=== PATIENT | female | born 1980 | race Caucasian/White ===

== ENCOUNTER 2017-09-30 15:00 | Outpatient (CLI) | payer MEDICARE, MEDICAID, SELFPAY ==
--- NOTE | 2017-09-30 14:42 | DI.REPORT_ITS ---
SYMPTOMS/DIAGNOSIS: LEFT CHEST PAIN, ATTENTION LOWER COSTAL MARGIN PA AND LATERAL CHEST AND LEFT RIBS: Comparison is made with April,. The cardiac and mediastinal contours have a normal appearance. The lungs appear clear. No infiltrate or effusion is seen. The lower ribs are not well penetrated. No rib fractures are seen. There is no evidence of pneumothorax. There are mild degenerative changes in the thoracic spine. IMPRESSION: Negative chest and left ribs.
== END 2017-09-30 15:01 ==
PROVIDERS: PCP General Practice; Visit Provider General Practice
DX: R07.9 Chest pain, unspecified (principal)
CPT/HCPCS: 71046; 71100

== ENCOUNTER 2018-04-29 13:32 | Emergency (ER) | payer MEDICARE, MEDICAID, SELFPAY ==
[2018-04-29 13:51] VITALS: BP 157/103; PULSE 106; RESP 16; TEMP 36.3; O2SAT 98
[2018-04-29 14:17] LABS: Bilirubin Small (Negative); Blood Negative (Negative); Clarity Sl Cloudy; Glucose Negative (Negative); Ketones Trace mg/dL (Negative); Leukocyte Esterase Negative (Negative); Nitrite Negative (Negative); Specific Gravity >= 1.030 (1.005-1.025); Urobilinogen 0.2 EU/dL (Up TO 0.2); pH 5.5 (5-8)
[2018-04-29 14:34] LABS: Bacteria Few HPF (Negative); C & S Indicated? No; Casts Negative LPF (Negative); Crystals Negative HPF (Negative); Epithelial Cells Many HPF (Negative); Mucus Moderate (Negative); RBC Negative (0-2); WBC Negative HPF (0-5)
--- NOTE | 2018-04-29 14:40 | W.ED.GENAD ---
Discharge Plan Disposition Patient Disposition: HOME Condition: Improving Discharge Details Chief Complaint: Urinary Clinical Impression: Acute cystitis Primary Care Provider: Kuldip Goldsmith ED Provider: Navdeep Ramos Home Meds and New Rx's Prescriptions: New phenazopyridine [Pyridium] 100 mg tablet 100 mg PO TID 2 Days Qty: 6 RF: 0 cephalexin 500 mg capsule 500 mg PO TID 7 Days Qty: 21 RF: 0 Continued albuterol sulfate 8.5 GM HFA aerosol inhaler 8.5 gm Inhalation Q4H PRN PRNRF: 0 diphenhydramine HCl 25 MG capsule 50 mg PO Q6H PRN PRNRF: 0 hydroxyzine HCl 25 MG tablet 25 mg PO Q6H PRN PRN (Reason: Itching) Qty: 15 RF: 0 famotidine 20 MG tablet 20 mg PO BID Qty: 10 RF: 0 epinephrine [EpiPen 2-Freedom] 0.3 MG/0.3 ML auto-injector 0.3 mg IJ DIRECTED PRN (Reason: Anaphylaxis) Qty: 1 RF: 0 Discontinued prednisone 20 MG tablet 40 mg PO DAILY Qty: 8 RF: 0 azithromycin 250 MG tablet 250 mg PO DIRECTED Qty: 6 RF: 0 prednisone 20 MG tablet 40 mg PO DAILY Qty: 12 RF: 0 Discharge Instructions Additional Instructions: Please take medications as prescribed. Continue your regular medications. Follow-up with regular doctor if not improving in 3-5 days time. Return if you develop increasing discomfort, fever, vomiting, or any other acute concerns Medical Decision Making 38-year-old female with lower abdominal pain and urinary frequency and dark colored urine over 1-1/2 days time. She is afebrile mildly tachycardic, mildly tender in her abdomen. Differential diagnosis includes pyelonephritis, cystitis, renal colic. IV placed, labs obtained, patient given fluid bolus and ketorolac. She is referred for noncontrast CT scan of the abdomen. Objective data: Patient's urinalysis contaminated but bacteria present. White blood cell count 11 but often has a leukocytosis. Hematocrit is 54, platelets 257. Chemistries note sodium 139, potassium 4.0, chloride 100, bicarb 27, BUN 11, creatinine 0.8 CT images are reassuring with no evidence of obstructive uropathy, no free fluid or free air and no inflammatory changes noted. She is improved following fluids and ketorolac. We will treat for developing cystitis. Patient understands home care and return precautions. HPI General Mode of arrival: ambulatory. Date/Time Provider Initiated Documentation: 04/29/18 13:59. Limitations to Documentation: no limitations. Information obtained by: patient. History of Present Illness 38 year old F presents to the emergency department with the chief complaint of Lower abdominal pain and dysuria, described as moderate, Quality is described as dull, and is localized to the abdomen and pelvis. Patient reports no radiation. Patient started experiencing this hour(s) and it has been intermittent. No relieving factors improve symptom(s), No exacerbating factors reported . Patient notes denies fever/chills, loss of appetite and nausea/vomiting. Patient did receive the following treatments prior to arrival, none Related Data Home Medications Medication Instructions Recorded Confirmed albuterol sulfate 8.5 gm INHALATION Q4H PRN PRN 09/17/14 05/08/16 diphenhydramine HCl 50 mg PO Q6H PRN PRN 03/30/16 05/08/16 epinephrine [EpiPen 2-Freedom] 0.3 mg IJ DIRECTED PRN #1 03/30/16 05/08/16 auto.injct famotidine 20 mg PO BID #10 tab 03/30/16 05/08/16 hydroxyzine HCl 25 mg PO Q6H PRN PRN #15 tab 03/30/16 05/08/16 cephalexin 500 mg PO TID 7 Days #21 cap 04/29/18 phenazopyridine [Pyridium] 100 mg PO TID 2 Days #6 tab 04/29/18 Previous Rx's Medication Instructions Recorded epinephrine [EpiPen 2-Freedom] 0.3 mg IJ DIRECTED PRN #1 03/30/16 auto.injct famotidine 20 mg PO BID #10 tab 03/30/16 hydroxyzine HCl 25 mg PO Q6H PRN PRN #15 tab 03/30/16 cephalexin 500 mg PO TID 7 Days #21 cap 04/29/18 phenazopyridine [Pyridium] 100 mg PO TID 2 Days #6 tab 04/29/18 Allergies Allergy/AdvReac Type Severity Reaction Status Date / Time chocolate flavor Allergy Severe unknown Unverified 04/29/18 13:51 hydrocodone bitartrate AdvReac Severe Nausea Unverified 04/29/18 13:51 [From Vicodin] General Stated Complaint: Urinary JANETTE: 4 Review of Systems Review of Systems No vomiting. No change to stool. 6 systems reviewed and otherwise negative [facility] Social History Smoking/Tobacco Use Status: Current every day Tobacco Type: cigarettes Alcohol Intake: current Alcohol Intake frequency: 0-2 drinks per day Drug use: Daily Substance use type: marijuana Do you feel safe at home: Yes Do you feel safe in your relationship?: Yes Exam Narrative Exam Narrative: GEN: awake, alert, oriented 3. Pleasant, well groomed, interactive. HEAD: Normocephalic, atraumatic ENT: Mucous membranes moist, oropharynx unremarkable, External ear exam unremarkable EYES: PERRL, EOMI NECK: Full ROM, no CELSO, no menigismus CHEST/RESP: Nontender, clear to auscultation bilateral, no wheeze/rhonchi/rales CARDIOVASCULAR: RRR, no murmur, rub amita. 2+ Rad pulse bilateral ABDOMEN: Soft, suprapubic tenderness, no mass. +Bowel sounds EXT: Full ROM, no edema, no rash Neuro: Grossly normal neurologic exam, conversant, interactive. Psych: Speech fluent, thoughts congruent, affect normal Course Vital Signs Temperature 36.3 C L 04/29/18 13:51 Pulse 106 H 04/29/18 13:51 Respiratory Rate 16 04/29/18 13:51 Blood Pressure 157/103 H 04/29/18 13:51 Pulse Oximetry 98 04/29/18 13:51 Temperature 36.3 C L 04/29/18 13:51 Temperature Source Temporal Artery Scan 04/29/18 13:51 Pulse 106 H 04/29/18 13:51 Respiratory Rate 16 04/29/18 13:51 Respiratory Effort 04/29/18 13:51 Blood Pressure 157/103 H 04/29/18 13:51 Blood Pressure Position Sitting 04/29/18 13:51 Pulse Oximetry 98 04/29/18 13:51 Oxygen Delivery Method Room Air 04/29/18 13:51 Oxygen Flow Rate 0 04/29/18 13:51 Pain Level 3 04/29/18 13:51 Lab/Test Results Lab/Test Results: Laboratory Tests Range/Units 04/29/18 14:10 Urine Color (Yellow) Yellow Urine Clarity Sl cloudy Urine pH (5-8) 5.5 Ur Specific [place] (1.005-1.025) >= 1.030 H Urine Protein (Negative) mg/dL Trace H Urine Ketones (Negative) mg/dL Trace H Urine Blood (Negative) Negative Urine Nitrite (Negative) Negative Urine Bilirubin (Negative) Small H Urine Urobilinogen (Up TO 0.2) EU/dL 0.2 Ur Leukocyte Esterase (Negative) Negative Urine RBC (0-2) Negative Urine WBC (0-5) HPF Negative Ur Epithelial Cells (Negative) HPF Many Urine Crystals (Negative) HPF Negative Urine Bacteria (Negative) HPF Few Urine Casts (Negative) LPF Negative Urine Mucus (Negative) Moderate Ur Culture Indicated? No Urine Glucose (Negative) mg/dL Negative
[2018-04-29] MEDS: Normal Saline 1,000 ML 1000 ML IV (14:56)
[2018-04-29] MEDS: Ketorolac 15 MG/ML VIAL 30 MG IVP (14:57)
[2018-04-29 15:17] LABS: Abs Immature Grans 0.07 k/cumm (0.0-0.09); Absolute Basophil Count 0.03 k/cumm (0.0-0.2); Absolute Eosinophil Count 0.24 k/cumm (0.0-0.7); Absolute Monocyte Count 0.73 k/cumm (0.11-0.7); Absolute Neutrophil Count 7.24 k/cumm (1.2-6.7); Basophils % 0.3; Eosinophils % 2.2; HCT 54.1 % (36.0-46.0); HGB 18.4 g/dL (12.0-15.5); Immature Grans % 0.6; Lymphocytes % 24.5; Mean Corpuscular Hemoglobin 30.7 pg (27.0-33.0); Mean Corpuscular Volume 90.3 fL (80-95); Mean Platelet Volume 9.2 fL (8.0-11.0); Monocytes % 6.6; Neutrophils % 65.8; Platelet Count 257 x1000/uL (130-400); RBC 5.99 m/cumm (4.00-5.20); RBC Distribution Width 13.5 % (11.7-14.6); White Blood Cell Count 11.01 k/cumm (4.4-10.8)
--- NOTE | 2018-04-29 15:20 | DI.CT_ITS ---
SYMPTOM/DIAGNOSIS: LOW ABD PAIN RENAL COLIC CT: Routine examination. Comparison is made with 09/16/14. Lack of IV contrast does limit evaluation of the abdominal organs. The visualized unenhanced portions of the liver, spleen, pancreas and adrenal glands are unremarkable. The patient is status post cholecystectomy. No definite biliary ductal dilatation is seen. There is no evidence of nephrolithiasis, ureterolithiasis or obstructive uropathy. The urinary bladder is intact. The patient appears to be status post hysterectomy. The visualized lung bases are clear. The aorta is of normal caliber. No significant abdominal or pelvic adenopathy, ascites or pneumoperitoneum is seen. There is a small fat containing midline anterior abdominal wall hernia. The bowel shows no evidence of obstruction or inflammation. There are a few diverticula seen in the sigmoid colon but no evidence of diverticulitis is seen. There is a normal appendix present. No acute osseous abnormality is appreciated. IMPRESSION: No evidence of an acute abdomen. No evidence of nephrolithiasis or obstructive uropathy.
[2018-04-29 15:36] LABS: ALT 46 U/L (12-78); AST 29 U/L (15-37); Albumin 4.4 g/dL (3.4-5.0); Alkaline Phosphatase 99 U/L (46-116); Anion Gap 11.6 mmol/L (3-11); BUN 11 mg/dL (7-18); Bilirubin, Total 0.7 mg/dL (0.2-1.0); CO2 27.4 mmol/L (21.0-32.0); CREATININE 0.85 mg/dL (0.55-1.02); Calcium 10.2 mg/dL (8.5-10.1); Chloride 100 mmol/L (98-107); Glucose 97 mg/dL (70-100); Sodium 139 mmol/L (136-145); Total Protein 8.6 g/dL (6.4-8.2)
--- NOTE | 2018-04-29 15:57 | DI.VRAD_ITS ---
EXAM: CT Abdomen and Pelvis Without Contrast EXAM DATE/TIME: 04/29/2018 2:43 PM CLINICAL HISTORY: 38 years old, female; Signs and symptoms; Other: Lower abdominal pain; Prior surgery; Surgery date: 6+ months; Surgery type: Hysterectomy. Hernia repair. Exploratory surgery TECHNIQUE: Axial computed tomography images of the abdomen and pelvis without contrast. All CT scans at this facility use at least one of these dose optimization techniques: automated exposure control; mA and/or kV adjustment per patient size (includes targeted exams where dose is matched to clinical indication); or iterative reconstruction. Coronal and sagittal reformatted images were created and reviewed. COMPARISON: CT RENAL COLIC WO CONTRAST 09/16/2014 10:29 PM FINDINGS: Upper portion of the liver and spleen nonvisualized. Prior cholecystectomy. Small anterior abdominal wall hernias adjacent to the midline bilaterally containing fat. Prior hysterectomy. Appendix is normal. Normal visualized appearing solid organs. No intestinal obstruction. No obstructive uropathy. No free fluid. No free air. No inflammatory changes. IMPRESSION: No specific etiology identified for the patient's symptoms. Dictated and Authenticated by: Mino Duncan MD. Ordering:SHERYL Sethi MD
[2018-04-29 16:30] VITALS: BP 125/80; PULSE 85; RESP 16; TEMP 36.3; O2SAT 98
== END 2018-04-29 16:30 | disposition home or self-care (01) ==
PROVIDERS: Emergency Provider Emergency Medicine; PCP General Practice
DX: N30.00 Acute cystitis without hematuria (principal)
CPT/HCPCS: 36415; 80053; 96361; 96374; 99284; 74176; 81003; 81015; 85025; J1885; J3490

== ENCOUNTER 2018-06-15 14:56 | Emergency (ER) | payer MEDICARE, MEDICAID, SELFPAY ==
[2018-06-15 15:04] VITALS: BP 130/78; PULSE 126; RESP 24; TEMP 36.4; O2SAT 97
[2018-06-15] MEDS: Albuterol/Ipratropium 3 ML UPD VIAL (15:26)
--- NOTE | 2018-06-15 16:06 | ED.GENADUL_ITS ---
Discharge Plan Disposition Patient Disposition: HOME Condition: Improving Discharge Details Chief Complaint: RespSymp Clinical Impression: Asthma exacerbation Primary Care Provider: Kuldip Goldsmith ED Provider: Nellie Weber Home Meds and New Rx's Prescriptions: New prednisone 20 mg tablet See Rx Instructions .ROUTE .COMPLEX Qty: 12 RF: 0 Flovent Diskus 100 mcg/actuation blister with device 1 inh IH BID Qty: 28 RF: 0 Continued albuterol sulfate 8.5 GM HFA aerosol inhaler 8.5 gm Inhalation Q4H PRN PRNRF: 0 diphenhydramine HCl 25 MG capsule 50 mg PO Q6H PRN PRNRF: 0 hydroxyzine HCl 25 MG tablet 25 mg PO Q6H PRN PRN (Reason: Itching) Qty: 15 RF: 0 famotidine 20 MG tablet 20 mg PO BID Qty: 10 RF: 0 epinephrine [EpiPen 2-Freedom] 0.3 MG/0.3 ML auto-injector 0.3 mg IJ DIRECTED PRN (Reason: Anaphylaxis) Qty: 1 RF: 0 Discharge Instructions Instructions: Asthma (ED) Additional Instructions: Take the steroids until finished. Use your albuterol inhaler as needed and directed. Use the Flovent inhaler as directed daily. Call your primary care doctor's office tomorrow to schedule a follow-up appointment for reevaluation. Return immediately to the emergency department with any worsening or new concerning symptoms. Discharge Data Discharge Date/Time-TO BE ENTERED AT DEPARTURE: 06/15/18 16:47 Discharge Physician: Nellie Weber Medical Decision Making 38-year-old female with a history of asthma who presents with shortness of breath and cough for the past 5 days. Initial heart rate 120s, normal respiratory rate and oxygen saturation. Denies fever, afebrile here and appears nontoxic so I do not see an indication for cxr at this time. Patient given 1 neb prior to evaluation and denies any improvement. On my evaluation, she had mildly diminished breath sounds and scattered wheezing throughout. Patient given a second neb and admits to complete improvement and requesting to go home. A dose of p.o. steroids given. Vitals normal prior to discharge. Breath sounds significantly improved. Patient speaking in full sentences. She states she has had asthma symptoms daily for the past several months which she attributes to moving frequently and mold in the home. Will send home with a prescription for prednisone, and Flovent. She has albuterol inhaler. She is instructed to call her primary care doctor for reevaluation and to return here if worse. HPI General Mode of arrival: ambulatory . Date/Time Provider Initiated Documentation: 06/15/18 15:17 . Limitations to Documentation: no limitations . Information obtained by: patient . HPI Narrative: Pt is a 38yo F w/ a h/o asthma who presents to the ED w/ a c/o cough with clear sputum, shortness of breath and wheezing for the past several days. Pt states she has been using her albuterol inhaler for relief. Triage note stated fevers up to 101 but pt denied recent fever to me. Denies h/o intubations. Denies recent travel, recent surgery, leg pain or swelling. Related Data Home Medications Medication Instructions Recorded Confirmed albuterol sulfate 8.5 gm INHALATION Q4H PRN PRN 09/17/14 06/15/18 diphenhydramine HCl 50 mg PO Q6H PRN PRN 03/30/16 06/15/18 epinephrine [EpiPen 2-Freedom] 0.3 mg IJ DIRECTED PRN #1 03/30/16 06/15/18 auto.injct famotidine 20 mg PO BID #10 tab 03/30/16 06/15/18 hydroxyzine HCl 25 mg PO Q6H PRN PRN #15 tab 03/30/16 06/15/18 fluticasone propionate [Flovent 1 inh IH BID #28 each 06/15/18 Diskus] prednisone See Rx Instructions .ROUTE 06/15/18 .COMPLEX #12 tab Previous Rx's Medication Instructions Recorded epinephrine [EpiPen 2-Freedom] 0.3 mg IJ DIRECTED PRN #1 03/30/16 auto.injct famotidine 20 mg PO BID #10 tab 03/30/16 hydroxyzine HCl 25 mg PO Q6H PRN PRN #15 tab 03/30/16 fluticasone propionate [Flovent 1 inh IH BID #28 each 06/15/18 Diskus] prednisone See Rx Instructions .ROUTE 06/15/18 .COMPLEX #12 tab Allergies Allergy/AdvReac Type Severity Reaction Status Date / Time chocolate flavor Allergy Severe unknown Unverified 05/02/19 15:08 hydrocodone bitartrate AdvReac Severe Nausea Unverified 06/15/18 15:08 [From Vicodin] General Stated Complaint: RespSymp JANETTE: 3 Review of Systems Review of Systems All systems reviewed & are unremarkable except as noted in HPI and below Constitutional Reports as per HPI, Denies chills and Denies fever(s) Eyes Denies blurry vision ENT Denies dizziness, Denies sore throat and Denies throat swelling Cardiovascular Denies chest pain and Reports dyspnea Respiratory Reports cough and Reports dyspnea Gastrointestinal Denies abdominal pain, Denies diarrhea and Denies vomiting Genitourinary Denies hematuria and Denies dysuria Musculoskeletal Denies back pain and Denies numbness Integumentary/Breasts Denies lesions and Denies rash Neurologic Denies dizziness, Denies focal weakness and Denies numbness Allergic/Immunologic Denies throat swelling PFSH Medical History Asthma (Chronic) Surgical History Hx of hysterectomy with oophorectomy (Acute) History of tonsillectomy (Chronic) Hx of cholecystectomy (Chronic) Hx of hernia repair (Chronic) Social History Smoking/Tobacco Use Status: Current every day Tobacco Type: cigarettes Alcohol Intake: current Alcohol Intake frequency: 0-2 drinks per day Drug use: Daily Substance use type: marijuana Do you feel safe at home: Yes Do you feel safe in your relationship?: Yes Exam Const General: cooperative, healthy appearing and anxious Orientation: alert, awake and oriented x3 HENMT Head: normal to inspection Ears: hearing grossly normal bilaterally, external ears normal and TM's normal bilaterally General nose exam: external nose normal Face and sinus: normal facial exam Mouth: oral mucosae normal Teeth and gingiva: dentition normal Throat: posterior oropharynx normal Eyes General: appearance normal, both eyes and all related structures Eyelids: eyelids normal EOM: EOM intact bilaterally Neck Neck: normal visual inspection Lymphatic: no lymphadenopathy noted Chest Chest: normal inspection of the chest Resp Effort & Inspection: normal respiratory effort and able to speak in complete sentences Auscultation: diminished lung sounds bilaterally throughout (mildly ) and wheezes scattered wheezes Cardio Rate: regular rate Rhythm: regular rhythm GI Inspection: normal to inspection Palpation: soft, not firm, no guarding, no hepatosplenomegaly, no masses and nontender Auscultation: normal bowel sounds Skin General skin exam: no rashes or lesions noted Neuro General: alert and awake Cognition: normal cognition Speech: speech normal Gait: normal gait Motor: muscle tone normal throughout Sensory Exam: no sensory deficits noted Extrem General: normal to inspection, full ROM, normal capillary refill, no calf tenderness and no edema Psych Appearance: grossly normal Mental Status: mental status grossly normal Speech and Movement: speech and movement normal Affect: normal affect Thought Process: normal Course Vital Signs Temperature 97.5 F L 06/15/18 15:04 Pulse 126 H 06/15/18 15:04 Respiratory Rate 24 06/15/18 15:04 Blood Pressure 130/78 06/15/18 15:04 Pulse Oximetry 97 06/15/18 15:04 Temperature 97.5 F L 06/15/18 15:04 Temperature Source Temporal Artery Scan 06/15/18 15:04 Pulse 126 H 06/15/18 15:04 Respiratory Rate 24 06/15/18 15:04 Respiratory Effort 06/15/18 15:08 Respiratory Depth Normal 06/15/18 15:08 Blood Pressure 130/78 06/15/18 15:04 Pulse Oximetry 97 06/15/18 15:04 Pain Level 0 06/15/18 15:04
[2018-06-15] MEDS: Albuterol 2.5 MG/3 ML INH SOLN VIAL UPD (16:09)
[2018-06-15 16:14] VITALS: PULSE 89; RESP 18; O2SAT 95
[2018-06-15] MEDS: predniSONE 20 MG TAB 60 MG PO (16:14)
[2018-06-15 16:47] VITALS: BP 124/70; PULSE 74; RESP 18; TEMP 37; O2SAT 98
== END 2018-06-15 16:47 | disposition home or self-care (01) ==
PROVIDERS: Emergency Provider Physician Assistant; PCP General Practice
DX: J45.901 Unspecified asthma with (acute) exacerbation (principal); F17.210 Nicotine dependence, cigarettes, uncomplicated
CPT/HCPCS: 94640; 99283; J7512; J7613; J7620

== ENCOUNTER 2020-03-11 12:00 | Outpatient (REF) | payer MEDICARE, MEDICAID, SELFPAY ==
[2020-03-11 13:47] LABS: WBC 0-2 HPF (0-5)
[2020-03-11 13:48] LABS: Casts Negative LPF (Negative); Crystals Many Amorphous HPF (Negative); Epithelial Cells Moderate HPF (Negative); Mucus Negative (Negative); Other Cells Negative (Negative); RBC Negative HPF (0-2)
[2020-03-11 13:49] LABS: C & S Indicated? No/Sq. Contamination
== END 2020-03-11 12:20 ==
LOC: NCHCN 12:00
PROVIDERS: PCP General Practice; Visit Provider Family Medicine
DX: F41.8 Other specified anxiety disorders (principal); R19.7 Diarrhea, unspecified; M54.31 Sciatica, right side; Z87.440 Personal history of urinary (tract) infections
CPT/HCPCS: 81015

== ENCOUNTER 2020-03-12 01:20 | Outpatient (CLI) | payer MEDICARE, MEDICAID, SELFPAY ==
--- NOTE | 2020-03-12 10:45 | DI.RAD_ITS ---
EXAM: XR LUMBAR SPINE COMPLETE CLINICAL HISTORY: RT SCIATICA, BACK PAIN, M54.31. TECHNIQUE: 2D digital imaging was performed. COMPARISON: No exams were available for comparison FINDINGS: BONES: No fracture or destructive lesion. Vertebral bodies are normal in height. Mild facet hypertro phy identified lower lumbar levels.. DISKS: There is moderate narrowing of the L4-5 disc space. There are small endplate osteophytes at t his level. There is mild narrowing of the L5-S1 disc space. The remaining intervertebral disc space s are maintained. ALIGNMENT: Lumbar spinal alignment is within normal limits. SOFT TISSUE: Normal. Right upper quadrant surgical clips. Normal bowel gas pattern. IMPRESSION: [id number] degenerative changes in the lower lumbar spine. DATA REPOSITORY: RADIATION DOSE DELIVERED:
--- NOTE | 2020-03-12 10:51 | DI.RAD_ITS ---
EXAM: XR SACRUM CLINICAL HISTORY: RT SCIATICA, PAIN. TECHNIQUE: 2D digital imaging was performed. COMPARISON: CR XR LUMBAR SPINE COMPLETE from 03/12/2020 FINDINGS: BONES: No acute fracture is present. No bony destructive lesion is seen. JOINTS: No widening of the SI joints or erosive changes. Minimal spurring inferiorly at the right SI joint. SOFT TISSUE: Normal. IMPRESSION: Mild degenerative changes of the right SI joint. DATA REPOSITORY: RADIATION DOSE DELIVERED:
== END 2020-03-12 01:40 ==
PROVIDERS: PCP General Practice; Visit Provider Family Medicine
DX: M46.1 Sacroiliitis, not elsewhere classified (principal); M54.31 Sciatica, right side; M47.816 Spondylosis without myelopathy or radiculopathy, lumbar region
CPT/HCPCS: 72110; 72220

== ENCOUNTER 2020-03-31 00:40 | Outpatient (CLI) | payer MEDICARE, MEDICAID, SELFPAY ==
--- NOTE | 2020-03-31 | DI.MRI_ITS ---
EXAM: MR LUMBAR SPINE WO CLINICAL HISTORY: RT SCIATICA, M54.31. TECHNIQUE: Multiplanar multisequence MRI of the Lumbar spine was performed. COMPARISON: CT CT renal colic wo from 04/29/2018 FINDINGS: Five lumbar vertebrae are presumed. Conus medullaris is at normal level. There is no evidence of conus mass nor subjacent clumping of in trathecal nerve roots to suggest arachnoiditis. The distal thecal sac appears unremarkable.There is no evidence of Tarlov intrasacral cysts nor other significant findings within the sacral canal Bones:There are no fractures nor ominous osseous lesions in the lumbar vertebral bodies and visualize d sacrum. With respect to the individual levels... T12-L1: Unremarkable L1-2: Normal disc height and signal. No disc herniation nor central canal stenosis.No foraminal steno sis L2-3: Normal disc height. No disc herniation nor central canal stenosis.No foraminal stenosis.No face t arthropathy. L3-4: Normal disc height. There is mild asymmetric annular bulging in the floor of the exiting left neural foramen, but without prominent ipsilateral foraminal stenosis.No central canal stenosis. No s ignificant facet arthropathy. L4-5: Moderate decreased disc height and signal. There is a central subligamentous disc herniation w hich is superimposed upon some annular bulging. This extends posteriorly 2-3 millimeters and contact s the thecal sac but there is no prominent central canal stenosis. No foraminal stenosis. No signif icant facet arthropathy. L5-S1: Moderate disc space narrowing. There is a prominent central-right paracentral disc herniation which extends posteriorly 7 millimeters and is approximately 1.8 cm wide. Contacting the thecal sac and occupying the right lateral recess. Does not extend into the exiting neural foramen. There is mild foraminal stenosis due to disc height loss. There is no significant facet arthropathy. Soft tissues: paraspinal soft tissues appear unremarkable. IMPRESSION: 1. The main finding is a large central-right paracentral disc herniation at L5-S1 level as described above with significant mass effect upon the thecal sac and right lateral recess at this level. Actua l osseous canal dimensions at this level are within normal limits. There is no significant facet art hropathy nor ligamentum flavum hypertrophy. 2. There is a smaller disc herniation as described above at L4-5 level. 3. In there is no significant facet arthropathy 3 in the lumbosacral spinal column. DATA REPOSITORY:
== END 2020-03-31 00:41 ==
LOC: DI 00:40
PROVIDERS: PCP Family Medicine; Visit Provider Family Medicine
DX: M51.17 Intervertebral disc disorders with radiculopathy, lumbosacral region (principal); M51.26 Other intervertebral disc displacement, lumbar region
CPT/HCPCS: 72148

== ENCOUNTER 2020-04-18 02:48 | Outpatient (CLI) | payer MEDICARE, MEDICAID, SELFPAY ==
[2020-04-18 08:06] LABS: HCT 52.3 % (36.0-46.0); HGB 17.2 g/dL (11.2-15.7); MCHC 32.9 % (32.0-36.0); MCV 94.2 fL (80-95); MPV 8.7 fL (8.0-11.0); Platelet Count 243 10^3/uL (130-400); RBC 5.55 10^6/uL (3.93-5.22); RDW 11.9 % (11.7-14.6); RDW-SD 41.3 fL; WBC 12.13 10^3/uL (4.4-10.8)
[2020-04-18 09:08] LABS: ALT 33 U/L (14-59); AST 14 U/L (15-37); Albumin 3.9 g/dL (3.4-5.0); Alkaline Phosphatase 87 U/L (46-116); Anion Gap 10.2 mmol/L (3-11); BUN 9 mg/dL (7-18); Bilirubin, Total 0.4 mg/dL (0.2-1.0); CO2 27.8 mmol/L (21.0-32.0); CREATININE 0.8 mg/dL (0.55-1.02); Calcium 9.2 mg/dL (8.5-10.1); Calculated LDL 185 mg/dL (<100); Chloride 104 mmol/L (98-107); Cholesterol 300 mg/dL (<200); Glucose 111 mg/dL (74-106); HDL Cholesterol 75 mg/dL (40-60); Potassium 4.6 mmol/L (3.5-5.1); Sodium 142 mmol/L (136-145); TSH (W/Ref FT4) 3.68 uIU/mL (0.36-3.74); Triglyceride 200 mg/dL (<150)
== END 2020-04-18 02:49 | disposition home or self-care (01) ==
LOC: LBO 02:48
PROVIDERS: PCP Family Medicine; Visit Provider Family Medicine
DX: K75.81 Nonalcoholic steatohepatitis (NASH) (principal); F10.20 Alcohol dependence, uncomplicated; E78.5 Hyperlipidemia, unspecified
CPT/HCPCS: 36415; 80053; 80061; 85027; 84443

== ENCOUNTER 2020-07-28 10:31 | Outpatient (REF) | payer MEDICARE, MEDICAID, SELFPAY ==
[2020-07-29 21:26] LABS: COVID-19 RT-PCR UVMMC Result Negative (Negative)
== END 2020-07-28 10:32 | disposition home or self-care (01) ==
LOC: NCHCN 10:31
PROVIDERS: PCP Family Medicine; Visit Provider Family Medicine
DX: Z20.822 Contact with and (suspected) exposure to COVID-19 (principal)
CPT/HCPCS: U0003; U0005

== ENCOUNTER 2020-09-12 12:29 | Outpatient (REF) | payer MEDICARE, MEDICAID, SELFPAY ==
[2020-09-12 15:26] LABS: Anion Gap 9.5 mmol/L (3-11); BUN 6 mg/dL (7-18); CO2 26.5 mmol/L (21.0-32.0); CREATININE 0.8 mg/dL (0.55-1.02); Calcium 9.9 mg/dL (8.5-10.1); Chloride 105 mmol/L (98-107); Glucose 100 mg/dL (74-106); Lithium 1.1 mmol/l (0.6-1.2); Potassium 4.3 mmol/L (3.5-5.1); Sodium 141 mmol/L (136-145)
== END 2020-09-12 12:30 | disposition home or self-care (01) ==
LOC: NCHCN 12:29
PROVIDERS: PCP Family Medicine; Visit Provider Family Medicine
DX: F25.0 Schizoaffective disorder, bipolar type (principal); Z51.81 Encounter for therapeutic drug level monitoring; Z79.899 Other long term (current) drug therapy
CPT/HCPCS: 80048; 80178

== ENCOUNTER 2021-01-06 13:32 | Outpatient (REF) | payer MEDICARE, MEDICAID, SELFPAY ==
[2021-01-07 17:30] LABS: COVID-19 RT-PCR UVMMC Result Negative (Negative)
== END 2021-01-06 13:33 | disposition home or self-care (01) ==
LOC: NCHCN 13:32
PROVIDERS: PCP Family Medicine; Visit Provider Family Medicine
DX: Z20.822 Contact with and (suspected) exposure to COVID-19 (principal)
CPT/HCPCS: U0003; U0005

== ENCOUNTER 2021-06-08 14:47 | Outpatient (REF) | payer MEDICARE, MEDICAID, SELFPAY ==
[2021-06-08 15:44] LABS: Abs Immature Grans 0.11 10^3/uL (0.0-0.06); Absolute Basophil Count 0.06 10^3/uL (0.0-0.2); Absolute Eosinophil Count 0.15 10^3/uL (0.0-0.7); Absolute Lymphocyte Count 3.23 10^3/uL (1.2-3.4); Absolute Monocyte Count 0.57 10^3/uL (0.1-0.8); Absolute Neutrophil Count 5.51 10^3/uL (1.2-6.7); Basophils % 0.6; Eosinophils % 1.6; HCT 49.5 % (36.0-46.0); HGB 16.2 g/dL (11.2-15.7); Immature Grans % 1.1; Lymphocytes % 33.5; MCH 30.6 pg (27.0-33.0); MCHC 32.7 % (32.0-36.0); MCV 93.4 fL (80-95); MPV 9.5 fL (8.0-11.0); Monocytes % 5.9; Neutrophils % 57.3; Platelet Count 339 10^3/uL (130-400); RDW 13.1 % (11.7-14.6); RDW-SD 45.2 fL; WBC 9.63 10^3/uL (4.4-10.8)
[2021-06-08 16:30] LABS: ALT 31 U/L (14-59); AST 12 U/L (15-37); Albumin 3.4 g/dL (3.4-5.0); Alkaline Phosphatase 75 U/L (46-116); Anion Gap 11.2 mmol/L (3-11); BUN 8 mg/dL (7-18); Bilirubin, Total 0.3 mg/dL (0.2-1.0); CO2 25.8 mmol/L (21.0-32.0); CREATININE 0.7 mg/dL (0.55-1.02); Calcium 9.6 mg/dL (8.5-10.1); Calculated LDL 122 mg/dL (<100); Chloride 106 mmol/L (98-107); Cholesterol 256 mg/dL (<200); Glucose 103 mg/dL (74-106); HDL Cholesterol 79 mg/dL (40-60); Potassium 4.5 mmol/L (3.5-5.1); Sodium 143 mmol/L (136-145); Total Protein 6.6 g/dL (6.4-8.2); Triglyceride 276 mg/dL (<150)
[2021-06-08 16:59] LABS: Hemoglobin A1C 5.6 % (<5.7)
== END 2021-06-08 14:48 | disposition home or self-care (01) ==
LOC: NCHCN 14:47
PROVIDERS: PCP Family Medicine; Visit Provider Family Medicine
DX: I10 Essential (primary) hypertension (principal); E78.5 Hyperlipidemia, unspecified; R73.03 Prediabetes
CPT/HCPCS: 80053; 80061; 83036; 85025

== ENCOUNTER 2022-06-07 14:27 | Outpatient (REF) | payer MEDICARE, MEDICAID, SELFPAY ==
[2022-06-07 14:41] LABS: Abs Immature Grans 0.06 10^3/uL (0.0-0.06); Absolute Basophil Count 0.07 10^3/uL (0.0-0.2); Absolute Eosinophil Count 0.28 10^3/uL (0.0-0.7); Absolute Lymphocyte Count 2.39 10^3/uL (1.2-3.4); Absolute Monocyte Count 0.75 10^3/uL (0.1-0.8); Basophils % 0.5; Eosinophils % 2.1; HCT 48.6 % (36.0-46.0); HGB 16.4 g/dL (11.2-15.7); Immature Grans % 0.4; Lymphocytes % 17.6; MCH 31.1 pg (27.0-33.0); MCHC 33.7 % (32.0-36.0); MCV 92 fL (80-95); MPV 9.4 fL (8.0-11.0); Monocytes % 5.5; Neutrophils % 73.9; Platelet Count 286 10^3/uL (130-400); RBC 5.28 10^6/uL (3.93-5.22); RDW 11.6 % (11.7-14.6); RDW-SD 39.6 fL; WBC 13.56 10^3/uL (4.4-10.8)
[2022-06-07 14:44] LABS: Absolute Neutrophil Count 10.02 10^3/uL (1.2-6.7)
[2022-06-07 15:25] LABS: Hemoglobin A1C 5.9 % (<5.7)
[2022-06-07 15:33] LABS: ALT 34 U/L (14-59); AST 11 U/L (15-37); Alkaline Phosphatase 100 U/L (46-116); Anion Gap 12.4 mmol/L (3-11); BUN 7 mg/dL (7-18); Bilirubin, Total 0.5 mg/dL (0.2-1.0); CO2 26.6 mmol/L (21.0-32.0); CREATININE 0.8 mg/dL (0.55-1.02); Chloride 100 mmol/L (98-107); Glucose 89 mg/dL (74-106); Potassium 4.5 mmol/L (3.5-5.1); Sodium 139 mmol/L (136-145); Total Protein 7.4 g/dL (6.4-8.2)
== END 2022-06-07 14:28 | disposition home or self-care (01) ==
LOC: NCHCN 14:27
PROVIDERS: PCP Family Medicine; Visit Provider Family Medicine
DX: R73.03 Prediabetes (principal); I10 Essential (primary) hypertension; K75.81 Nonalcoholic steatohepatitis (NASH); J20.9 Acute bronchitis, unspecified
CPT/HCPCS: 80053; 83036; 85025

== ENCOUNTER → 2022-09-09 15:26 | Outpatient (BNVA) | payer MEDICARE, MEDICAID, SELFPAY | PROVIDERS: PCP Family Medicine; Referring Provider Family Medicine; Visit Provider Physical Therapy Assistant | DX: Z12.11 Encounter for screening for malignant neoplasm of colon (principal); Z86.010 Personal history of colon polyps ==

== ENCOUNTER 2022-09-13 11:11 | Day surgery (SDC) | payer OTHER, MEDICAID, SELFPAY ==
--- NOTE | 2022-09-13 06:28 | W.ANESPRE ---
General Info Date of Service Date Performed: 09/13/22 Height: 5 ft 5 in Weight: 109.769 kg Body Mass Index (BMI): 40.2 Surgical Procedure: Operation Date: 09/13/22 12:50 Proposed Procedure Side Surgeon meg Silvestre MD Meds Allergies and Home Medications Allergies Allergy/AdvReac Type Severity Reaction Status Date / Time chocolate flavor Allergy Severe unknown Unverified 09/13/22 11:53 hydrocodone bitartrate AdvReac Severe Nausea Unverified 09/13/22 11:53 [From Vicodin] Home Medication Medication Instructions Recorded epinephrine 0.3 mg/0.3 mL 0.3 mg (0.3 mL) IJ DIRECTED PRN 03/30/16 injection, auto-injector (EpiPen Anaphylaxis ##1 2-Freedom) fluticasone propionate 100 1 inh inhalation BID #28 ea 06/15/18 mcg/actuation blister powder for inhalation (Flovent Diskus) albuterol sulfate 90 mcg/actuation 2 puff inhalation Q6H PRN 01/12/22 aerosol inhaler (ProAir HFA) fluticasone 250 mcg-salmeterol 50 1 inh inhalation BID 01/12/22 mcg/dose blistr powdr for inhalation (Advair Diskus) acetylcysteine 600 mg capsule (NAC) 600 mg PO DAILY 09/09/22 cariprazine 3 mg capsule (Vraylar) 3 mg PO DAILY 09/09/22 Current Visit Medications: Current Medications Generic Name Dose Route Start Last Admin Trade Name Freq PRN Reason Stop Dose Admin Ringer's Solution 1,000 mls @ 80 mls/hr 09/13/22 06:00 IV 09/13/22 23:59 INFUSION GINO IV Miscellaneous Supplies 1 each 09/13/22 06:00 Iv Access IV 09/13/22 23:59 DIRECTED GINO Sodium Chloride 0 ml 09/13/22 06:00 Normal Saline Flush 10 Ml Syr IV 09/13/22 23:59 PRN PRN Sodium Chloride 0 ml 09/13/22 06:00 Normal Saline 10 Ml Vial IJ 09/13/22 23:59 DIRECTED PRN Sterile Water 0 ml 09/13/22 06:00 Water,Injection,Sterile 10 Ml Vial IJ 09/13/22 23:59 DIRECTED PRN PFSH Active Problems Active Problems: Problem Status Onset Code Benign essential tremor G25.0 Bipolar affective disorder F31.9 Prediabetes R73.03 Chronic low back pain M54.50, G89.29 Screening for colon cancer Z12.11 Medical History Medical History Alcohol dependence, continuous Anxiety and depression Asthma Chronic diarrhea Cigarette smoker two packs a day or less HTN (hypertension) Hyperlipidemia Microscopic colitis Nonalcoholic steatohepatitis Sciatica, right side Surgical History Surgical History (Updated 09/13/22 @ 11:58 by Kaila Jackson) History of tonsillectomy Hx of cholecystectomy Hx of colonoscopy Hx of esophagogastroduodenoscopy Hx of hernia repair Hx of hysterectomy with oophorectomy S/P laparoscopic cholecystectomy Tobacco Smoking/Tobacco Use Status: Current every day Tobacco Type: cigarettes Alcohol Alcohol Intake: current Alcohol intake frequency: 0-2 drinks per day Alcohol type: beer Details: Describes drinking 15 beers/day on both Fri & Tue. Substance Use Substance use: Daily Substance use type: marijuana Vital Signs and Lab Results Vital Signs Most Recent Vital Signs in EMR: Temp Pulse Resp BP Pulse Ox 36.4 C L 80 20 125/75 98 09/13/22 12:00 09/13/22 12:00 09/13/22 12:00 09/13/22 12:00 09/13/22 12:00 Lab Results Blood Type / Crossmatch: No Data to Display Complete Blood Count: No Data to Display Complete Metabolic Panel: No Data to Display Liver Function Panel: No Data to Display Coagulation Panel: No Data to Display Cardiac Panel: No Data to Display Arterial Blood Gas: No Data to Display Venous Blood Gas: No Data to Display Pancreas Panel: No Data to Display Thyroid Panel: No Data to Display Infectious Disease: No Data to Display Blood Cultures: No Data to Display Toxicology Panel: No Data to Display Panel: No Data to Display Anesthesia Assessment and Plan Anesthesia History Personal History: No History of Anesthesia Complications Family History: No Family History of Anesthesia Complications and Other (grandmother was allergic, no info. ) Exercise Tolerance Exercise Tolerance: Metabolic Equivalents>4 Cardiac & Pulmonary Exam Cardiac Exam: Normal S1/S2 Heart Sounds Pulmonary Exam: Clear Bilateral Breath Sounds Implantable Cardiac Device Does patient have a Pacemaker or an ICD?: No Airway Exam Known Difficult Airway: No Mallampati Class: 4 Mouth Opening: Normal (> 3cm) Thyromental Distance: Greater than 3 cm Neck Range of Motion: Full ROM Neck Circumference: Thick Teeth Condition: Edentulous ASA Classification ASA Score: ASA 3 Emergency Case?: No NPO Status NPO Status: NPO Clears >2 hours, Solids >8 hours Status Status: History of Hysterectomy Anesthesia Plan Resuscitation Status: Full Code Anesthesia Technique: General Anesthesia Airway Planned: Natural Airway Monitors Used: Standard Monitors Preoperative Comments:: 42 yo female for colo. Sig PMHx: BMI 40, occ EtOH, HTN, smoker, (daily tobacco/cannabis) asthma (albuterol 2 times), preDM, anxiety/depression/bipolar, low back pain.
[2022-09-13 12:00] VITALS: BP 125/75; PULSE 80; RESP 20; TEMP 36.4; O2SAT 98
[2022-09-13] MEDS: Lactated Ringers 1,000 ML 80 ML IV (12:20)
--- NOTE | 2022-09-13 12:36 | W.PM.DSUDISC ---
Date of service: 09/13/22 Time of Service: 13:22 Discharge Plan Disposition Patient Disposition: Home Condition: Good Discharge Details Reason For Visit: Screening colonoscopy Attending Provider: Ranjit Silvestre Primary Care Provider: Erik Kaplan Home Meds and New Rx's Prescriptions: Continued acetylcysteine [NAC] 600 mg capsule 600 mg PO DAILY Vraylar 3 mg capsule 3 mg PO DAILY fluticasone propion-salmeterol [Advair Diskus] 250-50 mcg/dose blister with device 1 inh inhalation BID albuterol sulfate [ProAir HFA] 90 mcg/actuation HFA aerosol inhaler 2 puff inhalation Q6H PRN epinephrine [EpiPen 2-Freedom] 0.3 MG/0.3 ML auto-injector 0.3 mg IJ DIRECTED PRN (Reason: Anaphylaxis) Qty: 1 0RF Flovent Diskus 100 mcg/actuation blister with device 1 inh IH BID Qty: 28 0RF Discontinued bisacodyl [Dulcolax (bisacodyl)] 5 mg tablet,delayed release (DR/EC) 5 mg PO ONCE Qty: 4 0RF Rx Instructions: Take per colonoscopy instructions provided by ordering providers office polyethylene glycol 3350 17 gram/dose powder 17 g PO ONCE Qty: 238 0RF Rx Instructions: Take per colonoscopy instructions provided by ordering providers office Discharge Instructions Instructions: Colorectal Polyps (GEN), Diverticulosis (GEN), Diverticulosis Diet (GEN) Additional Instructions: Elda, we were able to finish your colonoscopy today without any difficulty. The quality of your prep was very good. I had great visualization. I did find a polyp around 30 cm from your anus. I removed this completely. I will take a week or 2 for me to get the results of the pathology report, but once I have that I will be in touch with my final recommendations. 1. If tolerated, consume a soft, low fiber diet for 1-2 days. 2. Do not drive, drink alcohol, operate machinery, make critical decisions, or do activities that require coordination or balance for 24 hours. 3. Because air was put into your colon during the procedure, expelling air from your rectum (passing gas or farting) is normal. 4. You may not have a bowel movement for 1-3 days because of the colonoscopy prep. This is normal. 5. Go directly to the emergency room if you notice any of the following: Develop chills (warm to touch), or if you have a thermometer and your temperature is above 101 Difficulty breathing or difficultly swallowing Persistent vomiting Severe abdominal pain, other than gas cramps Severe chest pain Black, tarry stools Any bleeding ? exceeding one tablespoon 6. Call your physician if the site where your intravenous was started becomes red, swollen, painful, and warm to touch. 7. Your physician has reviewed your pre-procedure medications. Please continue to take those medications as previously ordered. You will be given specific information/education regarding any changes to your medications before leaving. Activity:: Activity as Tolerated Diet:: As Tolerated Discharge Orders Discharge Orders: Discharge Order (Routine); Ordered 09/13/22 Ordered By: Ranjit Silvestre DS: Diagnosis Discharge Diagnosis (1) Screening for colon cancer: Status: Acute Asessment and Plan: I will follow-up on polypectomy results
--- NOTE | 2022-09-13 12:37 | W.COLOREPORT ---
Date of service: 09/13/22 Time of Service: : Colonoscopy Report Date of procedure: 09/13/22 Pre-op diagnosis general: Screening colonoscopy Post-op diagnosis procedure note: other (Diverticulosis, colon polyp) Procedure: Colonoscopy with polypectomy Surgeon: Ranjit Silvestre Anesthesia Type: General:No Airway Estimated blood loss (mL): 5 Pathology: other (0.25 cm polyp at 30 cm) Complications: None Disposition: same day Indications: Elda is a 42-year-old woman who underwent a colonoscopy previously for nonspecific abdominal complaints. She was found to have adenomatous polyps. She is following up for her next screening colonoscopy. Prep: Miralax/Dulcolax Procedure Start Time: 12:54 Procedure End Time: 13:14 Retraction Time: 11 Findings: Diverticulosis, colon polyp at 30 cm Procedure Description: After the induction of monitored anesthetic care, and with the patient in left lateral decubitus position, I began by performing an external anorectal exam.? Perineum and skin were normal, as was the anal verge.? There was no evidence of external hemorrhoids.? Next, I performed a digital rectal exam.? I did not appreciate any abnormal findings.? Next, I advanced a colonoscope into the rectal vault.? I performed retroflexion.? This was normal.? Using insufflation, I then advanced the colonoscope beyond the rectal folds and into the sigmoid colon before advancing towards the cecum.? The quality of the prep was adequate.? There were occasional sigmoid diverticula. The scope was noted to be in the cecum by identification of the ileocecal valve and appendiceal orifice.? I then began withdrawing the colonoscope using repeated irrigation as necessary for full evaluation of the colonic mucosa. Around 30 cm from the anal verge I identified a 0.25 cm polyp. ?It appeared sessile in character. ?I was able to remove this with a cold forcep polypectomy. ?I examined the site, and there was minimal bleeding. ?Once this was completed, I continued to withdraw the scope and examine the remainder of the colonic mucosa.?Once the scope was withdrawn to the level of the rectum, great care was taken to examine portions of the rectal folds.? Finally, the scope was withdrawn and the patient was brought to the same-day surgery recovery unit as the anesthetic wore off. ?The findings and instructions were shared with the patient prior to discharge.
[2022-09-13 12:39] VITALS: BMI 40.2
--- NOTE | 2022-09-13 12:59 | BOWEL_PTH ---
PATIENT: Elda Saxena I LOC: [facility] U#:[id number] AGE/SX: 42/F ROOM: RE09/13/[address]: Ranjit Silvestre MD : 1980 BED: DIS: 09/13/2022 SPEC #: [id number] RECD: 09/13/22 13:29 STATUS: KIRILL RE #: [id number] USAMA: 09/13/22 12:[address]: Ranjit Silvestre DEPT: Surgical Specimen RECD BY: Lydia Sotomayor ENTERED: 09/13/22 13:30 SP TYPE: Bowel OTHR DR: Erik Kalpan Tissues: 1 - BIOPSY BOWEL Procedures: GROSS AND MICRO LEVEL 4 Comments: [id number]
[2022-09-13 13:16] VITALS: BP 105/70; PULSE 80; RESP 18; TEMP 36.3; O2SAT 98
[2022-09-13 13:46] VITALS: BP 105/76; PULSE 79; RESP 20; TEMP 36.2; O2SAT 98
--- NOTE | 2022-09-14 09:41 | W.ANESPOSTOP ---
Postoperative Evaluation Date, Time and Location Date Performed: 09/13/22 Time Performed: 13:46 Patient Location: Day Surgery Unit Vital Signs Most Recent Imported Vital Signs: Most Recent Vital Signs Temp Pulse Resp BP Pulse Ox 36.2 C L 79 20 105/76 98 09/13/22 13:46 09/13/22 13:46 09/13/22 13:46 09/13/22 13:46 09/13/22 13:46 Pain Score Most Recent Pain Score: Most Recent Pain Score Pain Level 0 09/13/22 13:46 Assessment Mental Status: Awake (Alert & Oriented to Patient Baseline) Airway and Respiratory Function: Patent airway with normal (patient baseline) respiratory exam Cardiovascular Function: Hemodynamically Stable Hydration Status: Adequately Hydrated Nausea & Vomiting: No Nausea or Vomiting Pain: Pt. Denies Any Pain Peripheral Nerve Block: Patient did not receive a nerve block
== END 2022-09-13 14:08 | disposition home or self-care (01) ==
PROVIDERS: PCP Family Medicine; Visit Provider Surgery
PROC: 0DJD8ZZ Inspection of Lower Intestinal Tract, Via Natural or Artificial Opening Endoscopic (ICD-10-PCS; CPT 45378; principal; 2022-09-13 12:45)
DX: Z12.11 Encounter for screening for malignant neoplasm of colon (principal); Z86.010 Personal history of colon polyps; D12.5 Benign neoplasm of sigmoid colon; K57.30 Diverticulosis of large intestine without perforation or abscess without bleeding
CPT/HCPCS: 45380; 88305; J2001; J2704

== ENCOUNTER → 2023-02-03 02:00 | Outpatient (CLI) | payer OTHER, MEDICAID, SELFPAY ==
--- NOTE | 2023-02-03 | DI.MAMMO_ITS ---
Exam(s) MAMMO SCREENING EXAM: MAMMO SCREENING CLINICAL HISTORY: SCREENING, Z12.31 TECHNIQUE: Bilateral full field digital CC and MLO mammographic images were obtained with 3D tomosyn thesis and utilizing computer aided detection (CAD). COMPARISON: This is a baseline examination. FINDINGS: Masses/Architectural Distortion: There is a 5 mm nodule in the retroareolar region of the left breast on the craniocaudad view. There are no areas of architectural distortion. Microcalcifications: No suspicious pleomorphic-type are seen. Skin Thickening/Nipple Retraction: None. IMPRESSION: 1. 5 mm nodule in the retroareolar region of the left breast. 2. Spot compression views requested for further evaluation. Limited left breast ultrasound may be in dicated at that time. BI-RADS Category 0 - Assessment Incomplete: Need additional imaging evaluation Breast Density - Category B - Scattered areas of fibroglandular density Breast density category C or D implies that the patient has dense breast tissue. Dense breast tissue is very common and is not abnormal but dense breast tissue can make it harder to find cancer on a ma mmogram. Also, dense breast tissue may increase their breast cancer risk. This information about the result of the mammogram report was provided to the patient to raise their awareness. Use this report when you speak with the patient about their risks for breast cancer, which includes their family hist ory. At that time, you may recommend for more screening tests (Ultrasound or MRI) as they might be us eful based on their risk. A negative radiographic report should not delay biopsy if a dominant or clinically suspicious mass is present. Up to ten percent of cancers are not identified on mammography. A negative report may reinforce clinical impression. Adenosis and dense breasts may obscure an underlying neoplasm. False positive reports average 6 to 10%. Patient will receive a letter notifying them of these results.
== END ==
PROVIDERS: PCP Family Medicine; Visit Provider Family Medicine
DX: Z12.31 Encounter for screening mammogram for malignant neoplasm of breast (principal); R92.8 Other abnormal and inconclusive findings on diagnostic imaging of breast
CPT/HCPCS: 77063; 77067

== ENCOUNTER 2023-02-08 04:17 | Outpatient (CLI) | payer OTHER, MEDICAID, SELFPAY ==
[2023-02-08 09:27] LABS: Abs Immature Grans 0.04 10^3/uL (0.0-0.06); Absolute Basophil Count 0.06 10^3/uL (0.0-0.2); Absolute Eosinophil Count 0.43 10^3/uL (0.0-0.7); Absolute Lymphocyte Count 2.54 10^3/uL (1.2-3.4); Absolute Monocyte Count 0.46 10^3/uL (0.1-0.8); Absolute Neutrophil Count 5.32 10^3/uL (1.2-6.7); Basophils % 0.7; Eosinophils % 4.9; HCT 41.7 % (36.0-46.0); HGB 14.2 g/dL (11.2-15.7); Immature Grans % 0.5; Lymphocytes % 28.7; MCHC 34.1 % (32.0-36.0); MCV 88 fL (80-95); MPV 8.9 fL (8.0-11.0); Monocytes % 5.2; Platelet Count 263 10^3/uL (130-400); RBC 4.73 10^6/uL (3.93-5.22); RDW 11.6 % (11.7-14.6); RDW-SD 37.3 fL; WBC 8.85 10^3/uL (4.4-10.8)
[2023-02-08 09:38] LABS: Hemoglobin A1C 5.8 % (<5.7)
[2023-02-08 09:57] LABS: ALT 18 U/L (14-59); AST 7 U/L (15-37); Albumin 3.2 g/dL (3.4-5.0); Alkaline Phosphatase 83 U/L (46-116); Anion Gap 6.3 mmol/L (3-11); BUN 12 mg/dL (7-18); Bilirubin, Total 0.2 mg/dL (0.2-1.0); CO2 26.7 mmol/L (21.0-32.0); CREATININE 0.8 mg/dL (0.55-1.02); Calcium 9.1 mg/dL (8.5-10.1); Calculated LDL 126 mg/dL (<100); Chloride 106 mmol/L (98-107); Cholesterol 215 mg/dL (<200); Glucose 106 mg/dL (74-106); HDL Cholesterol 59 mg/dL (40-60); Sodium 139 mmol/L (136-145); Total Protein 6.4 g/dL (6.4-8.2); Triglyceride 151 mg/dL (<150)
== END 2023-02-08 04:18 | disposition home or self-care (01) ==
LOC: LBO 04:17
PROVIDERS: PCP Family Medicine; Visit Provider Family Medicine
DX: I10 Essential (primary) hypertension (principal); R73.03 Prediabetes; E78.5 Hyperlipidemia, unspecified; K76.0 Fatty (change of) liver, not elsewhere classified
CPT/HCPCS: 36415; 80053; 80061; 83036; 85025

== ENCOUNTER → 2023-02-09 00:50 | Outpatient (CLI) | payer OTHER, MEDICAID, SELFPAY ==
--- NOTE | 2023-02-09 | DI.US_ITS ---
Exam(s) MG MAMMO SCREEN CALL BACK UNI US BREAST LT COMPLETE EXAM: MG MAMMO SCREEN CALL BACK UNI-LEFT AND COMPLETE LEFT BREAST ULTRASOUND CLINICAL HISTORY: F/U MAMMO, LT BREAST NODULE. TECHNIQUE: Unilateral spot mammographic images obtained with 3D tomosynthesisand utilizing computer aided detection (CAD). . Complete breast Ultrasound was also performed, including all 4 quadrants, the retroareolar region, a nd the ipsilateral axilla. COMPARISON: Prior mammograms were reviewed. This additional imaging was performed due to findings described on the recent BASELINE screening mammogram of 02/03/2023. FINDINGS: DIAGNOSTIC MAMMOGRAM: Additional mammographic views performed todaydo not dissipate the nodule. We proceeded with ultrasou nd COMPLETE LEFT BREAST ULTRASOUND: Ultrasound performed today reveals a wider than taller solid nodule in the retroareolar region which corresponds to the finding on the mammogram, measuring 5 x 3 mm and containing a hyperechoic focus co nsistent with the solitary calcifications seen within the nodule on the mammogram. This is not a sim ple cyst. It exhibits neutral through transmission. No associated decreased through transmission. Does not appear to be associated with a dilated duct. No other significant focal ultrasound findings in the left breast Scanning of the ipsilateral axilla reveals no significant adenopathy. IMPRESSION: 1. There is a 5 x 3 mm solid partially calcified nodule in the retroareolar region on ultrasound whi ch corresponds to the finding on the mammogram. May represent small fibroadenoma or possible papillo ma Appropriate follow-up is repeat imaging in 3 months to include repeat ultrasound and mammogram.. The patient was informed of these findings and recommendations by myself prior to leaving the departm ent today. BI-RADS Category 3 - 3 month - Probably Benign Finding: Recommend follow-up mammography and ultrasoun d in 3 months Breast Density - Category B - Scattered areas of fibroglandular density Breast density Category C or D implies that the patient has dense breast tissue. Dense breast tissue can make it harder to find cancer on a mammogram. Dense breast tissue is also associated with an incr eased risk of breast cancer. This information about the result of the mammogram report was provided to the patient to raise their awareness. Use this report when you speak with the patient about their risks for breast cancer, which includes their family history. At that time, you may recommend additional screening tests (Ultrasoun d or MRI) as these tests may add significant information. A negative radiographic report should not delay biopsy if a dominant or clinically suspicious mass is present. Up to ten percent of cancers are not identified on mammography. A negative report may reinforce clinical impression. Adenosis and dense breasts may obscure an underlying neoplasm. False positive reports average 6 to 10%. Patient will receive a letter notifying them of these results.
== END ==
PROVIDERS: PCP Family Medicine; Visit Provider Family Medicine
DX: Z12.31 Encounter for screening mammogram for malignant neoplasm of breast (principal); R92.8 Other abnormal and inconclusive findings on diagnostic imaging of breast
CPT/HCPCS: 76642; 77063; 77067

== ENCOUNTER → 2023-03-18 01:01 | Outpatient (CLI) | payer OTHER, MEDICAID, SELFPAY ==
--- NOTE | 2023-03-18 | DI.US_ITS ---
Exam(s) US NEEDLE LOCAL BREAST WO RAD EXAM: LEFT BREAST MASS COMPARISON: US US BREAST LT COMPLETE from 02/09/2023 TECHNIQUE: Ultrasound performed using standard protocol. FINDINGS: Sonography was provided for Dr. Ranjit Silvestre during the performance of a ultrasound-guided left breas t biopsy. Please refer to the procedure report for complete details. DATA REPOSITORY:
--- NOTE | 2023-03-18 13:21 | BREAST_PTH ---
PATIENT: Elda Saxena I LOC: [facility] U#:[id number] AGE/SX: 44/F ROOM: RE03/18/[address]: Ranjit Silvestre MD : 1980 BED: DIS: SPEC #: [id number] RECD: 03/18/23 16:33 STATUS: KIRILL REKhushbu #: [id number] USAMA: 03/18/23 13:[address]: Ranjit Silvestre DEPT: Surgical Specimen RECD BY: Lydia Sotomayor ENTERED: 03/18/23 16:33 SP TYPE: Breast OTHR DR: Erik Kaplan Tissues: 1 - BREAST BX NEEDLE Procedures: GROSS AND MICRO LEVEL 4 Comments: [id number]
--- NOTE | 2023-03-18 13:44 | OPPNE_ITS ---
Date of service: 03/18/23 Time of Service: 13:44 Procedure Note Date of procedure: 03/18/23 Procedure: Ultrasound-guided core needle biopsy of left breast mass Surgeon/Proceduralist/Physician: Ranjit Silvestre Procedure Diagnosis: Left breast mass Procedure Indications: Elda is a 42-year-old woman who underwent routine screening mammography, was found to have a lesion in the retroareolar position on the left breast. This was followed up with an ultrasound that demonstrated a 5 x 3 mm subareolar breast lesion. She was recommended to undergo surveillance imaging, or biopsy. She elected to undergo left breast biopsy. We discussed the risks and benefits of the procedure, as well as the nature of it and anticipated recovery. She was able to provide informed consent today, and we will move forward with ultrasound-guided core needle biopsy. Procedure Description: Show was assisted to the procedure table, and the left breast was exposed. A limited ultrasound was performed by fuel testing technician, and the previous lesion was identified appropriately. Measurements were concordant, and the location was also in agreement. Next, I prepped the area of the left breast adjacent to the ultrasound probe. I anesthetized the skin with local anesthetic. Next, I made a small stab skin incision using a 11 blade scalpel. Next, with real-time ultrasound guidance, I advanced a 22-gauge Bard core needle biopsy device up to the margin of the lesion. The breast mass was sampled twice with the core needle device in the usual fashion. She tolerated this well. Given the small size of the lesion, I did not think it would be reasonable to perform any more biopsies after that, as a majority of the mass at least as defi viry by ultrasound was quite hard to decipher after the biopsies. Next, again with the assistance of ultrasound, a permanent marker was placed in the area of the previous biopsies. A Band-Aid was applied to the percutaneous access site, and the patient was advised of what to expect in terms of recovery and follow- up. Patient did request that results be phoned to her mother rather than the patient directly. Patient's mother's name is Kerry and will be reached at [phone]
== END ==
PROVIDERS: PCP Family Medicine; Visit Provider Surgery
DX: D24.2 Benign neoplasm of left breast (principal)
CPT/HCPCS: 19083; 88305; 76942

== ENCOUNTER 2024-01-16 16:05 | Outpatient (REF) | payer OTHER, MEDICAID, SELFPAY ==
[2024-01-16 15:59] LABS: ALT 18 U/L (14-59); AST 10 U/L (15-37); Albumin 3.8 g/dL (3.4-5.0); Alkaline Phosphatase 95 U/L (46-116); Anion Gap 10.5 mmol/L (3-11); BUN 10 mg/dL (7-18); Bilirubin, Total 0.39 mg/dL (0.2-1.0); CO2 23.5 mmol/L (21.0-32.0); CREATININE 0.9 mg/dL (0.55-1.02); Calcium 9.1 mg/dL (8.5-10.1); Chloride 107 mmol/L (98-107); Estimated GFR 80.84 (mL/min/1.73m2); Glucose 92 mg/dL (74-106); Potassium 4.3 mmol/L (3.5-5.1); Sodium 141 mmol/L (136-145); Total Protein 6.8 g/dL (6.4-8.2)
[2024-01-16 16:04] LABS: Hemoglobin A1C 5.7 % (<5.7)
== END 2024-01-16 16:06 | disposition home or self-care (01) ==
LOC: NCHCN 16:05
PROVIDERS: PCP Family Medicine; Visit Provider Family Medicine
DX: R73.03 Prediabetes (principal)
CPT/HCPCS: 80053; 83036

== ENCOUNTER 2024-08-06 02:17 | Outpatient (CLI) | payer MEDICARE, MEDICAID, SELFPAY ==
--- NOTE | 2024-08-06 | DI.MAMMO_ITS ---
Exam(s) MAMMO SCREENING EXAM: MAMMO SCREENING CLINICAL HISTORY: screening Z00.00, ADULT HEALTH EXAMINATION TECHNIQUE: Mammograms were interpreted according to the usual protocol including computer analysis with CAD system, tomosynthesis and C-view imaging. COMPARISON: 2022 FINDINGS: The breasts are composed of mainly fatty density , Breast Density category A. No suspicious masses or suspicious microcalcifications are seen. No skin thickening or abnormal axillary lymph nodes are seen. There has been no significant change from prior exams. IMPRESSION: BI-RADS Category 1, Negative mammogram Yearly screening mammography is recommended. Breast Density- Category A - The breast are almost entirely fatty. Breast density Category C or D implies that the patient has dense breast tissue. Dense breast tissue can make it harder to find cancer on a mammogram. Dense breast tissue is also associated with an increased risk of breast cancer. This information about the result of the mammogram report was provided to the patient to raise their awareness. Use this report when you speak with the patient about their risks for breast cancer, which includes their family history. At that time, you may recommend additional screening tests (Ultrasound or MRI) as these tests may add significant information. A negative radiographic report should not delay biopsy if a dominant or clinically suspicious mass is present. Up to ten percent of cancers are not identified on mammography. A negative report may reinforce clinical impression. Adenosis and dense breasts may obscure an underlying neoplasm. False positive reports average 6 to 10%. Patient will receive a letter notifying them of these results.
== END 2024-08-06 02:37 ==
LOC: DI 02:17
PROVIDERS: PCP Family Medicine; Visit Provider Family Medicine
DX: Z12.31 Encounter for screening mammogram for malignant neoplasm of breast (principal); R92.313 Mammographic fatty tissue density, bilateral breasts
CPT/HCPCS: 77063; 77067